=== PATIENT | male | born 1960 | race Caucasian/White ===

== ENCOUNTER 2017-11-20 14:54 | Emergency (ER) | payer OTHER ==
[~2017-11-20] VITALS: Ht 180.3 cm; Wt 102.7 kg
[~2017-11-20 14:54] MED LIST: AUGMENTIN875 MG PO
[2017-11-20 15:29] LABS: HEMATOCRIT 40.6 % (38.0-50.0); HEMOGLOBIN 14.2 G/DL (12.5-16.6); MCH 30.7 PG (29.0-34.0); MCV 87.9 FL (86-99); PLATELET COUNT 175 K/uL (156-360); RBC DIS.WIDTH-CV 12.7 % (11.8-14.6); RBC DIS.WIDTH-SD 40.9 % (39-53); RED BLOOD COUNT 4.62 M/uL (4.00-5.50); WHITE BLOOD COUNT 11.1 K/uL (4.1-10.2)
[2017-11-20] MEDS ORDERED: MICROZIDE12.5 M1 PO (15:31)
[2017-11-20 15:45] LABS: CHLORIDE 104 mEq/L (99-109); POTASSIUM 3.6 mEq/L (3.7-5.4); SODIUM 139 mEq/L (136-147)
[2017-11-20 15:46] LABS: GLUCOSE 116 mg/dL (70-99)
[2017-11-20 15:50] LABS: CREATININE 1.1 mg/dL (0.6-1.3); GFR ESTIMATE (CALCULATED) > 59 mL/min/ (58.99-99999)
[2017-11-20 15:51] LABS: UREA NITROGEN (BUN) 20 mg/dL (9-23)
[2017-11-20] MEDS ORDERED: ULTRAM50 MG PO (16:40)
[2017-11-20] MEDS ORDERED: VALIUM5 MG PO (16:40)
[2017-11-20 16:55] VITALS: BP 106/64
== END 2017-11-20 16:56 | disposition home or self-care (01) ==
LOC: EME 14:54
PROVIDERS: Emergency Medicine
DX: S76.312A Strain of muscle, fascia and tendon of the posterior muscle group at thigh level, left thigh, initial encounter (principal); M25.552 Pain in left hip; W18.30XA Fall on same level, unspecified, initial encounter; I10 Essential (primary) hypertension; Z88.5 Allergy status to narcotic agent
CPT/HCPCS: 73502; 73552; 80048; 85027; 99281; 99284